=== PATIENT | female | born 1970 | race Caucasian/White ===

== ENCOUNTER 2021-02-13 10:20 | Observation (INO) ==
[2021-02-13] MEDS ORDERED: DEXTROSE 50% 25 GM/50 ML VIAL IV PRN (11:52)
[2021-02-13] MEDS ORDERED: GLUCAGON 1 MG VIAL IM PRN (11:52)
[2021-02-13] MEDS ORDERED: hydrALAZINE 20 MG/1 ML VIAL IV PRN (16:34)
[2021-02-13 17:04] LABS: Basophils # 0.1 10*3/uL (0.0-0.2); Basophils % 0.9 % (0.0-0.8); Eosinophils # 0.4 10*3/uL (0.0-0.87); Eosinophils % 3.8 % (0.00-10.9); Hematocrit 39.5 VOL% (35.7-47.0); Hemoglobin 13.1 GM/DL (12.0-16.0); Immature Granulocytes % 0.4 %; Immature Granulocytes Absolute 0.04 #; Lymphocytes % 32.7 % (21.3-54.2); Mean Corpuscular HGB Conc 33.2 GM/DL (32-36); Mean Corpuscular Volume 92.5 FL (87-102); Mean Platelet Volume 9.7 FL (9.6-12.0); Monocytes % 6.8 % (1.7-12.7); Neutrophils % 55.4 % (38.7-73.9); Platelet Count 325 T/CUMM (130-400); Red Blood Count 4.27 MC/CUMM (3.8-5.5); Red Cell Distribution Width 13.3 % (9.3-17.3); White Blood Count 9.1 T/CUMM (4-12)
[2021-02-13] MEDS ORDERED: ALPRAZolam 0.5 MG TABLET PO PRN (17:10)
[2021-02-13] MEDS ORDERED: NICOTINE 21 MG/24 HR PATCH TRANSDERM PRN (17:13)
[2021-02-13 17:29] LABS: Alanine Aminotransferase 28 U/L (13-56); Albumin 3.6 G/DL (3.4-5.0); Alkaline Phosphatase 91 U/L (45-117); Aspartate Amino Transferase 20 U/L (0-37); Bilirubin,Total < 0.39 MG/DL (0.2-1.0); Blood Urea Nitrogen 6 MG/DL (7-18); Calcium 8.7 MG/DL (8.5-10.1); Carbon Dioxide 28 MMOL/L (21-32); Estimated Glom Filtration Rate 91 ML/MIN; Glucose 90 MG/DL (74-106); Osmolality,Calculated 272.7 MOS/KG (273-304); Potassium 3.9 MMOL/L (3.5-5.1); Sodium 138 MMOL/L (136-145); Total Protein 7.1 G/DL (6.4-8.2)
[2021-02-13 17:40] LABS: Eosinophils 3 % (0-10); Lymphocytes 30 % (20-55); Segmented Neutrophils 63 % (50-85); Total Cells Counted 100
[2021-02-13 18:45] LABS: INR 1.1; Partial Thromboplastin Time 31.6 SECS (23.9-33.8)
[2021-02-13] MEDS ORDERED: ACETAMINOPHEN 500 MG TABLET PO PRN (19:32)
[2021-02-13] MEDS: DOCUSATE SODIUM 100 MG CAPSULE PO PRN (20:19)
[2021-02-13] MEDS: tiZANidine 4 MG TABLET PO PRN (22:19)
[2021-02-13] MEDS: ALPRAZolam 0.5 MG TABLET PO SCH (22:20)
[2021-02-14] MEDS: INSULIN REGULAR 100 UNIT/ML SUBCUT SCH ×5 (02:20→22:19)
[2021-02-14 05:28] LABS: Basophils # 0.1 10*3/uL (0.0-0.2); Basophils % 0.9 % (0.0-0.8); Eosinophils # 0.4 10*3/uL (0.0-0.87); Eosinophils % 4.9 % (0.00-10.9); Hematocrit 39.1 VOL% (35.7-47.0); Hemoglobin 13.1 GM/DL (12.0-16.0); Immature Granulocytes % 0.5 %; Immature Granulocytes Absolute 0.04 #; Lymphocytes # 3.3 10*3/uL (1.4-4.0); Lymphocytes % 42.8 % (21.3-54.2); Mean Corpuscular HGB Conc 33.5 GM/DL (32-36); Mean Corpuscular Volume 92.2 FL (87-102); Mean Platelet Volume 9.9 FL (9.6-12.0); Monocytes % 6.5 % (1.7-12.7); Neutrophils % 44.4 % (38.7-73.9); Platelet Count 285 T/CUMM (130-400); Red Blood Count 4.24 MC/CUMM (3.8-5.5); Red Cell Distribution Width 13.2 % (9.3-17.3); White Blood Count 7.7 T/CUMM (4-12)
[2021-02-14 05:45] LABS: Calcium 8.9 MG/DL (8.5-10.1); Osmolality,Calculated 275.7 MOS/KG (273-304); Potassium 3.5 MMOL/L (3.5-5.1); Risk Ratio 4.39; VLDL CHOLESTEROL 58.6 MG/DL
[2021-02-14 06:14] LABS: Eosinophils 4 % (0-10); Hypochromasia Slight; Lymphocytes 45 % (20-55); Platelet Estimate Normal; Segmented Neutrophils 46 % (50-85); Total Cells Counted 100
[2021-02-14] MEDS: ATORVASTATIN 20 MG TABLET PO SCH (08:53)
[2021-02-14] MEDS: FLUTICASONE 50 MCG NASAL SPRAY 16 GM BOTTLE BOTH NARES SCH (08:53)
[2021-02-14] MEDS: atenoloL 50 MG TABLET PO SCH (08:53)
[2021-02-14] MEDS: ALPRAZolam 0.5 MG TABLET PO SCH ×3 (08:54→21:35)
[2021-02-14] MEDS: DOCUSATE SODIUM 100 MG CAPSULE PO PRN ×2 (08:54→21:35)
[2021-02-14] MEDS ORDERED: ATORVASTATIN 10 MG TABLET PO SCH (09:00)
[2021-02-14] MEDS: glyBURIDE 2.5 MG TABLET PO SCH (10:32)
[2021-02-14] MEDS: tiZANidine 4 MG TABLET PO PRN (21:35)
[2021-02-15] MEDS: tiZANidine 4 MG TABLET PO PRN (08:22)
[2021-02-15] MEDS: atenoloL 50 MG TABLET PO SCH (08:23)
[2021-02-15] MEDS: INSULIN REGULAR 100 UNIT/ML SUBCUT SCH ×4 (08:57→21:15)
[2021-02-15] MEDS: glyBURIDE 2.5 MG TABLET PO SCH (08:57)
[2021-02-15] MEDS: ATORVASTATIN 20 MG TABLET PO SCH (08:57)
[2021-02-15] MEDS: ALPRAZolam 0.5 MG TABLET PO SCH ×3 (08:58→21:10)
[2021-02-15] MEDS: FLUTICASONE 50 MCG NASAL SPRAY 16 GM BOTTLE BOTH NARES SCH (08:58)
[2021-02-15] MEDS ORDERED: SCOPOLAMINE 1.5 MG PATCH TRANSDERM ONE (13:40)
[2021-02-15] MEDS: LACTATED RINGERS 1,000 ML IV SCH ×2 (13:56→18:08)
[2021-02-15 15:39] LABS: Bilirubin,Urine Negative (Negative); Blood, Urine Negative (Negative); Glucose,Urine (UA) Negative (Negative); Ketones,Urine Negative (Negative); Mucus,Urine Occasional /LPF (Occasional); Nitrite,Urine Negative (Negative); Protein,Urine Negative; Squamous Epithelial Cell,Urine Occasional /HPF (0-10); Urine Appearance CLEAR (Clear); Urine Color Straw (Yellow); Urine Specific Gravity 1.006 (1.001-1.035); Urine Urobilinogen < 2.0 EU/DL (0.2-1.0)
[2021-02-15] MEDS ORDERED: BENZOCAINE/MENTHOL LOZENGE 18/BOX PO PRN (15:54)
[2021-02-15] MEDS ORDERED: ONDANSETRON 4 MG/2 ML VIAL IV PRN ×2 (15:54→16:04)
[2021-02-15] MEDS ORDERED: IBUPROFEN 800 MG TABLET PO PRN (15:54)
[2021-02-15] MEDS ORDERED: DOCUSATE SODIUM 100 MG CAPSULE PO PRN (15:54)
[2021-02-15] MEDS ORDERED: MAGNESIUM HYDROXIDE SUSP 30 ML UDCUP PO PRN (15:54)
[2021-02-15] MEDS ORDERED: ACETAMINOPHEN 325 MG TABLET PO PRN (15:54)
[2021-02-15] MEDS ORDERED: BISACODYL 10 MG SUPP RECTAL PRN (15:54)
[2021-02-15] MEDS ORDERED: HYDROmorphone 2 MG/1 ML VIAL IV PRN (15:59)
[2021-02-15] MEDS: HYDROmorphone 2 MG/1 ML VIAL IV PRN ×4 (16:10→16:25)
[2021-02-15] MEDS ORDERED: diphenhydrAMINE 50 MG/1 ML VIAL IV PRN (17:31)
[2021-02-15] MEDS: ceFAZolin 1,000 MG in SYRINGE 1 EACH IV SCH (21:58)
[2021-02-16] MEDS: tiZANidine 4 MG TABLET PO PRN (00:07)
[2021-02-16 05:24] LABS: Red Cell Distribution Width 13.2 % (9.3-17.3)
[2021-02-16 05:41] LABS: Basophils % 0.7 % (0.0-0.8); Eosinophils # 0.3 10*3/uL (0.0-0.87); Eosinophils % 4.2 % (0.00-10.9); Hematocrit 31.1 VOL% (35.7-47.0); Immature Granulocytes % 0.3 %; Immature Granulocytes Absolute 0.02 #; Lymphocytes # 0.8 10*3/uL (1.4-4.0); Lymphocytes % 13.2 % (21.3-54.2); Mean Corpuscular HGB Conc 34.1 GM/DL (32-36); Mean Corpuscular Volume 92.8 FL (87-102); Mean Platelet Volume 10.3 FL (9.6-12.0); Neutrophils % 76.6 % (38.7-73.9)
[2021-02-16 05:43] LABS: Hemoglobin 10.6 GM/DL (12.0-16.0); Red Blood Count 3.35 MC/CUMM (3.8-5.5)
[2021-02-16 05:44] LABS: Platelet Count 176 T/CUMM (130-400)
[2021-02-16 05:45] LABS: Calcium 8.4 MG/DL (8.5-10.1); Osmolality,Calculated 277.4 MOS/KG (273-304); Potassium 3.9 MMOL/L (3.5-5.1)
[2021-02-16] MEDS: ceFAZolin 1,000 MG in SYRINGE 1 EACH IV SCH (06:14)
[2021-02-16] MEDS: LACTATED RINGERS 1,000 ML IV SCH (06:18)
[2021-02-16] MEDS: INSULIN REGULAR 100 UNIT/ML SUBCUT SCH ×4 (06:55→21:30)
[2021-02-16] MEDS: atenoloL 50 MG TABLET PO SCH (08:13)
[2021-02-16] MEDS: ALPRAZolam 0.5 MG TABLET PO SCH ×3 (08:14→21:31)
[2021-02-16] MEDS: glyBURIDE 2.5 MG TABLET PO SCH (08:14)
[2021-02-16] MEDS: METOCLOPRAMIDE 10 MG TABLET PO SCH ×3 (08:14→23:52)
[2021-02-16] MEDS: ATORVASTATIN 20 MG TABLET PO SCH (08:14)
[2021-02-16] MEDS ORDERED: MAGNESIUM SULF RIDER 2 GM in PREMIX 1 EACH IV PRN (08:16)
[2021-02-16] MEDS ORDERED: MAGNESIUM SULF RIDER 4 GM in PREMIX 1 EACH IV PRN (08:16)
[2021-02-16] MEDS: FLUTICASONE 50 MCG NASAL SPRAY 16 GM BOTTLE BOTH NARES SCH (08:17)
[2021-02-16] MEDS ORDERED: GLUCAGON 1 MG VIAL IM PRN (13:21)
[2021-02-16] MEDS ORDERED: DEXTROSE 50% 25 GM/50 ML VIAL IV PRN (13:21)
[2021-02-16] MEDS: NEOMYCIN/POLYMYXIN/BACITRACIN OINT 0.9 GM PACK TOP SCH ×2 (14:13→21:36)
[2021-02-16] MEDS ORDERED: SIMETHICONE CHEW 80 MG TABLET PO PRN (15:35)
[2021-02-16] MEDS ORDERED: MAGNESIUM CITRATE 300 ML BOTTLE PO ONE (15:35)
[2021-02-16] MEDS: DOCUSATE SODIUM 100 MG CAPSULE PO PRN (21:11)
[2021-02-17] MEDS: INSULIN REGULAR 100 UNIT/ML SUBCUT SCH (08:55)
[2021-02-17] MEDS: ATORVASTATIN 20 MG TABLET PO SCH (09:13)
[2021-02-17] MEDS: glyBURIDE 2.5 MG TABLET PO SCH (09:13)
[2021-02-17] MEDS: ALPRAZolam 0.5 MG TABLET PO SCH (09:13)
[2021-02-17] MEDS: atenoloL 50 MG TABLET PO SCH (09:13)
[2021-02-17] MEDS: NEOMYCIN/POLYMYXIN/BACITRACIN OINT 0.9 GM PACK TOP SCH (09:14)
[2021-02-17] MEDS: METOCLOPRAMIDE 10 MG TABLET PO SCH (09:14)
[2021-02-17] MEDS: FLUTICASONE 50 MCG NASAL SPRAY 16 GM BOTTLE BOTH NARES SCH (09:17)
[2021-02-17 10:07] VITALS: BP 111/69
== END 2021-02-17 13:00 | disposition home or self-care (01) ==
LOC: N.OB → N.OBOUT 10:20 → UNDODEPREF 02-17 13:52
PROVIDERS: ADMIT Obstetrics & Gynecology; ATTEND Obstetrics & Gynecology